=== PATIENT | female | born 1940 | race Hispanic/Latino ===

== ENCOUNTER 2021-03-23 12:31 | Emergency (ER) | payer MEDICARE | END 2021-03-23 17:51 | disposition home or self-care (01) | LOC: ER 12:40 | DX: G62.9 Polyneuropathy, unspecified (principal) | CPT/HCPCS: 93970; 99283 ==

== ENCOUNTER 2022-01-07 18:30 | Emergency (ER) | payer MEDICARE ==
[~2022-01-07] VITALS: Ht 149.9 cm; Wt 99.8 kg
[2022-01-07] MEDS ORDERED: CARVEDILOL 12.5 MG TAB PO ONE (19:45)
[2022-01-07 21:19] VITALS: BP 140/87
== END 2022-01-07 21:31 | disposition home or self-care (01) ==
LOC: ER 18:47
DX: M79.604 Pain in right leg (principal); S00.83XA Contusion of other part of head, initial encounter; M25.561 Pain in right knee; M25.571 Pain in right ankle and joints of right foot; W01.0XXA Fall on same level from slipping, tripping and stumbling without subsequent striking against object, initial encounter; Y93.01 Activity, walking, marching and hiking; Y92.008 Other place in unspecified non-institutional (private) residence as the place of occurrence of the external cause; I10 Essential (primary) hypertension; E78.5 Hyperlipidemia, unspecified
CPT/HCPCS: 70450; 72125; 99284

== ENCOUNTER 2022-01-11 18:14 | Emergency (ER) | payer MEDICARE ==
[~2022-01-11] VITALS: Ht 149.9 cm; Wt 99.8 kg
[2022-01-11 18:50] LABS: BASOPHILS % 0.6 % (0.0-1.0); EOSINOPHILS # (AUTO) 0.2 (0.0-0.4); EOSINOPHILS % 3.4 % (0.0-6.0); HEMOGLOBIN 11.1 g/dL (12.0-16.0); LYMPHOCYTES # (AUTO) 1.3 (1.0-3.2); LYMPHOCYTES % 24.8 % (18.0-39.1); MEAN CORPUSCULAR HEMOGLOBIN 29.8 pg (28-32); MEAN CORPUSCULAR VOLUME 99.2 fL (81-99); MONOCYTES # (AUTO) 0.5 (0.2-0.8); MONOCYTES % 9.1 % (4.4-11.3); NEUTROPHILS # (AUTO) 3.2 (2.1-6.9); NEUTROPHILS % 60.4 % (38.7-80.0); PLATELET COUNT 228 x10e3/uL (140-360); RED BLOOD COUNT 3.73 x10e6/uL (3.6-5.1); RED CELL DISTRIBUTION WIDTH 14.6 % (11.7-14.4)
[2022-01-11 19:10] LABS: ALBUMIN 3.1 g/dL (3.5-5.0); ALBUMIN/GLOBULIN RATIO 0.9 (0.8-2.0); ANION GAP 15.6 mmol/L (8-16); CREATININE, SERUM 1.34 mg/dL (0.57-1.11); POTASSIUM 4.6 mmol/L (3.5-5.1)
[2022-01-11 19:16] LABS: CREATINE KINASE MB 1.6 ng/mL (0-5.0)
[2022-01-11 19:44] LABS: CLARITY,URINE CLEAR (CLEAR); COLOR,URINE YELLOW (YELLOW); KETONES,URINE NEGATIVE (NEGATIVE); LEUKOCYTE ESTERASE ,URINE NEGATIVE (NEGATIVE); NITRITE,URINE NEGATIVE (NEGATIVE); PROTEIN,URINE DIPSTICK NEGATIVE (NEGATIVE); URINE UROBILINOGEN 0.2 mg/dL (0.2 - 1)
[2022-01-11 19:50] LABS: BACTERIA,URINE RARE /HPF; EPITHELIAL CELLS,URINE RARE /LPF; MUCUS,URINE MANY (RARE); WBC,URINE (MAN) 0-5 /HPF (0-5)
[2022-01-11 22:54] VITALS: BP 106/45
== END 2022-01-11 23:02 | disposition home or self-care (01) ==
LOC: ER 18:21
DX: U07.1 COVID-19 (principal); R53.1 Weakness; R53.83 Other fatigue; R94.31 Abnormal electrocardiogram [ECG] [EKG]
CPT/HCPCS: 36415; 70450; 71045; 80053; 81001; 82550; 82553; 84484; 85025; 99284; U0002; 93005